=== PATIENT | male | born 1960 | race Caucasian/White ===

== ENCOUNTER 2020-04-18 09:15 | Emergency (ER) | payer OTHER, BC, SELFPAY ==
--- NOTE | ~2020-04-18 | XR_ITS ---
EXAMINATION: CR HIP, RIGHT CLINICAL INFORMATION: Right hip pain. Unable to bear weight. No fall. COMPARISON: Lumbar spine films dated 04/07/2014. TECHNIQUE: Frontal view of the pelvis and 2 views of the right hip. FINDINGS: No acute fracture or dislocation. Both femoral heads are normally located within the acetabula. Sacroiliac joints are intact bilaterally. There is slight widening of the pubic symphysis, measuring up to 0.6 cm. Some sclerotic density is seen on both sides of the pubic symphysis. Mild degenerative changes are seen in the lower lumbar spine. A clip is seen projected over the right upper scrotum. XR/XR hip RT w PEL1V IMPRESSION: 1. Slight widening of the pubic symphysis is seen, raising the suspicion of subtle diastases of the pubic symphysis. Close clinical correlation is requested. 2. No evidence of acute right hip fracture or acute pelvic bone fracture.
--- NOTE | ~2020-04-18 | CT_ITS ---
EXAMINATION: CT HIP WITHOUT CONTRAST, RIGHT CLINICAL INFORMATION: Unable to bear weight. COMPARISON: Right hip 04/18/2020 TECHNIQUE: Axial 2 mm thin and reformatted 1 mm thin sagittal and coronal images of right hip were obtained. This CT examination was performed using dose optimization techniques as appropriate, variously including the following: *Automated exposure control *Adjustment of mA and/or kV according to patient size (this includes techniques or standardized protocols for targeted exams where dose is matched to indication/reason for exam; i.e. extremities or head) *Use of iterative reconstruction technique DLP: 278 mGy-cm FINDINGS: There is a vertical fissure through the superior acetabulum simulating fracture. There is a subtle linear lucency along inferior acetabular suspicious for nondisplaced fracture. It is best visualized on axial image 84-89/6. There is no dislocation. The proximal femur appears unremarkable. The soft tissues are normal. CT/CT hip RT wo con IMPRESSION: Suspect nondisplaced subtle fracture inferior acetabulum. There is no dislocation.
[2020-04-18 09:34] VITALS: BP 136/95; BP 151/83; PULSE 80; PULSE 84; RESP 16; TEMP 36.9; O2SAT 96; O2SAT 97; BMI 31.1
--- NOTE | 2020-04-18 09:34 | ED.GENADULT ---
HPI - General Adult General Chief complaint: Extremity Injury, Lower Stated complaint: R HIP PAIN S/P FALL DURING NIGHT Time Seen by Provider: 04/18/20 09:22 Source: patient Mode of arrival: EMS Limitations: no limitations History of Present Illness HPI narrative: Patient comes to emergency room complaining of he has history of a labral tear. Patient has been doing well until yesterday he had sudden onset sharp pain on the right hip, no falls or other trauma. Patient states that this morning he was unable to get up and walk, called EMS, came to emergency room. Patient states that as long as he does move, he has no pain MD complaint: Right hip pain Related Data Previous Rx's Medication Instructions Recorded oxycodone 5 mg PO Q8H PRN #14 tab 04/18/20 Allergies Allergy/AdvReac Type Severity Reaction Status Date / Time No Known Allergies Allergy Verified 04/18/20 09:33 Review of Systems Review of Systems: Constitutional : No Weight loss, No Fever, No Chills, No Night Sweats, No Fatigue, No Malaise ENT/Mouth : No Hearing loss, No Ear Pain, No Nasal Congestion, No Sinus Pain, No Hoarseness, No sore throat, No Rhinorrhea, No Swallowing Difficulty Eyes: No Eye Pain, No Swelling, No Redness, No Foreign Body, No Discharge, No Vision Changes Cardiovascular : No Chest Pain, No SOB, No Dyspnea on Exertion, No Orthopnea, No Edema, No Palpitations Respiratory : No Cough, No Sputum, No Wheezing, No Smoke Exposure, No Dyspnea Gastrointestinal : No Nausea, No Vomiting, No Diarrhea, No Constipation, No abdominal Pain, No Hematochezia, No Melena Genitourinary : no irregular bleeding, No Dysuria, No Urinary Frequency, No Hematuria, No Urinary Incontinence, No Urgency, No Flank Pain, No Urinary Flow Changes, No Hesitancy Musculoskeletal : Complaining of right-sided hip pain with weight-bearing, No Myalgias, No Joint Swelling Skin : No Skin Lesions, No rash Neuro : No Weakness, No Numbness, No Paresthesias, No Loss of Consciousness, No Dizziness, No Headache Psych : No Anxiety/Panic, No Depression, No SI/HI/AH/VH, No Social Issues, Heme/Lymph: No Bruising, No Bleeding,No Lymphadenopathy Endocrine : No Polyuria, No Polydipsia, No Temperature Intolerance PMF Past Medical History Medical History High cholesterol Surgical History Previous back surgery Social History Social History Smoked in Last 30 Days: No Use of substances other than those prescribed or required for medical reasons: No Advance Directives: No Advance Directives Information Provided: No Physical Exam Vital Signs: Vital Signs: Last Vital Signs Temp 98.4 F 04/18/20 09:34 Pulse 84 04/18/20 09:34 Resp 16 04/18/20 09:34 BP 136/95 H 04/18/20 09:34 Pulse Ox 96 04/18/20 09:34 Body Mass Index 31.1 Appearance: Alert. Oriented X3. No acute distress. Eyes: Pupils equal, round and reactive to light. ENT: Pharynx normal. Neck: Normal inspection. Neck supple. No lymph nodes noted. No crepitus CVS: Normal heart rate and rhythm. Pulses normal. Normal S1 and S2 Respiratory: No respiratory distress. Breath sounds normal. No Wheezing. No rales Abdomen: Soft and nontender. No rigidity. No distention. good BS x4 Skin: Skin warm and dry. Normal skin color. Normal skin turgor. Extremities: No lower extremity edema. Right-sided hip pain worsened with hip flexion and extension, patient unable to bear weight due to pain Neuro: Oriented X 3. No motor deficit. No sensory deficit. Moving all extermities. No slurred speech. Course Course Course Narrative: I discussed the x-ray and the CT scan with the patient. Patient declined case management/PT evaluation. Patient will follow-up with his orthopedic surgeon. Patient will given crutches for walking assistance. I discussed with the patient that a fracture is suspected, an MRI would be more precise. Medical Decision Making Imaging Data Right hip CT: Radiologist's impression: INDINGS: There is a vertical fissure through the superior acetabulum simulating fracture. There is a subtle linear lucency along inferior acetabular suspicious for nondisplaced fracture. It is best visualized on axial image 84-89/6. There is no dislocation. The proximal femur appears unremarkable. The soft tissues are normal. CT/CT hip RT wo con IMPRESSION: Suspect nondisplaced subtle fracture inferior acetabulum. There is no dislocation. Hip x-ray: Radiologist's impression: No acute fracture or dislocation. Both femoral heads are normally located within the acetabula. Sacroiliac joints are intact bilaterally. There is slight widening of the pubic symphysis, measuring up to 0.6 cm. Some sclerotic density is seen on both sides of the pubic symphysis. Mild degenerative changes are seen in the lower lumbar spine. A clip is seen projected over the right upper scrotum. XR/XR hip RT w PEL1V IMPRESSION: 1. Slight widening of the pubic symphysis is seen, raising the suspicion of subtle diastases of the pubic symphysis. Close clinical correlation is requested. 2. No evidence of acute right hip fracture or acute pelvic bone fracture. Discharge Plan Discharge Clinical Impression: Closed right acetabular fracture Qualifiers: Encounter type: initial encounter Sublocation of acetabulum: unspecified portion of acetabulum Fracture alignment: nondisplaced Qualified Code(s): S32.401A - Unspecified fracture of right acetabulum, initial encounter for closed fracture Patient Disposition: Home, Self-Care Additional Instructions: Please follow-up with orthopedics, avoid weight-bearing until you are seen by orthopedics Please follow-up with your primary care physician tomorrow. If you have any worsening or new symptoms, please return to the emergency room or call 911 Prescriptions: New oxycodone 5 mg tablet 5 mg PO Q8H PRN (Reason: pain) Qty: 14 RF: 0 Referrals: Gerry Little MD [Physician] - 2 days
--- NOTE | 2020-04-18 09:57 | PC.NURSE ---
this rn requests pain med/muscle relaxer, awaiting orders
[2020-04-18] MEDS: Baclofen 10 MG TABLET PO (10:38)
[2020-04-18] MEDS: oxyCODONE HCl Immed Release 5 MG TABLET PO (11:40)
[2020-04-18] MEDS: Morphine Sulfate 4 MG/ML CARTRIDGE IVPUSH (13:06)
[2020-04-18 13:46] VITALS: BP 160/84; PULSE 82; RESP 16; TEMP 36.7; O2SAT 97
== END 2020-04-18 13:48 | disposition home or self-care (01) ==
PROVIDERS: Emergency Provider Emergency Medicine; PCP Internal Medicine
DX: S32.401A Unspecified fracture of right acetabulum, initial encounter for closed fracture (principal); W19.XXXA Unspecified fall, initial encounter; Y93.9 Activity, unspecified; Y92.9 Unspecified place or not applicable; Y99.9 Unspecified external cause status
CPT/HCPCS: 73502; 73700; 96374; 99284; J2270

== ENCOUNTER 2020-09-30 09:56 | Outpatient (REF) | payer BC, SELFPAY ==
[2020-09-30 10:43] LABS: MANUAL DIFF FLAG NO
[2020-09-30 10:58] LABS: Basophils Percent Auto 0.6 % (0-2); Eosinophils Absolute Auto 0.2 X10*3/uL (0.0-0.4); Eosinophils Percent Auto 3.6 % (0-4); Hematocrit 50.5 % (42-52); Hemoglobin 17.2 g/dl (14.0-18.0); Imm Gran Abs Auto 0.01 X10*3/uL (0.00-0.03); Imm Gran Pct Auto 0.2 % (0.0-0.4); Lymphocytes Absolute Auto 1.6 X10*3/uL (1.2-4.9); Lymphocytes Percent Auto 30.2 % (20-40); Mean Corpuscular HGB Conc 34.1 g/dl (31.0-36.0); Mean Corpuscular Hemoglobin 29.4 pg (27.0-33.0); Mean Corpuscular Volume 86.3 fL (80-98); Mean Platelet Volume 10.1 fL (9.4-12.4); Monocytes Absolute Auto 0.6 X10*3/uL (0.1-1.2); Neutrophils Absolute Auto 2.8 X10*3/uL (2.0-8.3); Neutrophils Percent Auto 53.4 % (45-73); Platelet Count 265 X10*3/uL (160-400); Red Blood Count 5.85 X10*6/uL (4.60-5.80); Red Cell Distribution Width 12.8 % (11.0-16.0); White Blood Count 5.2 X10*3/uL (4.8-10.8)
[2020-09-30 11:28] LABS: Alanine Aminotransferase 28 U/L (0-40); Albumin Level 4.4 g/dL (3.5-5.0); Alkaline Phosphatase 94 U/L (39-117); Anion Gap 10 (12-20); Aspartate Amino Transferase 22 U/L (5-37); Bilirubin Total 1.7 mg/dL (0.0-1.0); Blood Urea Nitrogen 16 mg/dL (9-16); Calcium 9.6 mg/dL (8.4-10.2); Carbon Dioxide 30 mmol/L (22-29); Chloride 106 mmol/L (96-108); Cholesterol 189 mg/dL; Estimated Glomerular Filt Rate > 60; Glucose Fasting 92 mg/dL (60-99); HDL Cholesterol 43 mg/dL; LDL Cholesterol Calculated 126 mg/dl; Potassium 4.8 mmol/L (3.3-5.1); Sodium 141 mmol/L (135-145); Total Protein 7.1 g/dL (6.5-8.0); Triglycerides 103 mg/dL
[2020-09-30 12:20] LABS: Prostate Specific Antigen 0.66 ng/mL (<0.05-4.0)
== END 2020-09-30 09:57 | disposition home or self-care (01) ==
LOC: HO.LAB 09:56
PROVIDERS: PCP Internal Medicine; Visit Provider Internal Medicine
DX: Z00.00 Encounter for general adult medical examination without abnormal findings (principal); Z12.5 Encounter for screening for malignant neoplasm of prostate
CPT/HCPCS: 36415; 80053; 80061; 84153; 85025

== ENCOUNTER 2021-01-25 10:10 | Outpatient (REF) | payer BC, SELFPAY ==
--- NOTE | ~2021-01-25 | XR_ITS ---
EXAMINATION: XR CHEST 2 VIEW CLINICAL INFORMATION: Cough, rule out pneumonia COMPARISON: 09/07/2018 TECHNIQUE: PA and lateral views of the chest obtained. FINDINGS: Retrocardiac opacity is evident in the left lower lobe, best visualized on the lateral radiograph. The right lung is clear. There are no pleural effusions. The cardiomediastinal silhouette is stable. XR/XR chest 2V IMPRESSION: Left lower lobe airspace opacities, for which follow-up is recommended to confirm clearing.
[2021-01-25 15:55] LABS: Influenza A PCR NEGATIVE (Negative); Influenza B PCR NEGATIVE (Negative); Resp Syncy Virus RNA Qual PCR NEGATIVE (Negative); SARS COV2 PCR INHOUSE NEGATIVE (Negative)
== END 2021-01-25 10:11 | disposition home or self-care (01) ==
LOC: HO.XRAY 10:10
PROVIDERS: PCP Internal Medicine; Visit Provider Internal Medicine
DX: R05.9 Cough, unspecified (principal); R50.9 Fever, unspecified; Z20.822 Contact with and (suspected) exposure to COVID-19
CPT/HCPCS: 0241U; 71046

== ENCOUNTER 2021-04-09 09:04 | Day surgery (SDC) | payer BC, SELFPAY ==
--- NOTE | 2021-04-09 09:35 | HO.ANESPROP2 ---
[facility] Past Medical History Medical History Enlarged prostate High cholesterol History of anxiety History of depression Neuropathy Functional capacity: independent ambulation Family History Family history of problems with anesthesia: No Surgical History Surgical History Previous back surgery History of Problems with Anesthesia: No Social History Social History Advance Directives: No Advance Directives Information Provided: Yes Meds Allergies Allergy/AdvReac Type Severity Reaction Status Date / Time No Known Allergies Allergy Verified 04/18/20 09:33 Active Medications: Current Medications Lactated Ringer's (Lr) 1,000 mls @ 100 mls/hr IVCONT .Q10H RAFAEL Home Medications Medication Instructions Recorded Confirmed Last Taken Type alfuzosin 10 mg tablet,extended 1 tab PO BEDTIME 04/08/21 04/08/21 Unknown History release 24 hr atorvastatin 40 mg tablet 1 tab PO DAILY 04/08/21 04/08/21 Unknown History cyclobenzaprine 10 mg tablet 1 tab PO TID 04/08/21 04/08/21 Unknown History gabapentin 800 mg tablet 1 tab PO TID 04/08/21 04/08/21 Unknown History Exam Exam Date and Time: April 09, 2021 0935 Airway Mallampati Class: II TM Dist: >3cm Neck ROM: Full Heart: RRR Lungs: CTA Assessment and Plan Final Anesthetic Review Family History of Problems with Anesthesia: No History of Problems with Anesthesia: No ASA Class: II Final Preanesthetic Review: No Changes in Pt Med Stat, Meds/Allgs Chart Reviewed, Consent Obtained/Reviewed and Anes Risks/Benef Reviewed Patient Risk: Low Procedure Risk: Low Anesthetic Plan Anesthetic Plan: MAC: Disposition: Standard PACU
[2021-04-09 09:42] VITALS: BP 144/101; PULSE 84; RESP 16; TEMP 36.7; O2SAT 96; BMI 32.1
[2021-04-09] MEDS: Lactated Ringers 1,000 ML 100 ML IVCONT (09:49)
--- NOTE | 2021-04-09 09:59 | HO.ANESPROP2 ---
[facility] Past Medical History Medical History Enlarged prostate High cholesterol History of anxiety History of depression Neuropathy Functional capacity: independent ambulation Family History Family history of problems with anesthesia: No Surgical History Surgical History Previous back surgery History of Problems with Anesthesia: No Social History Social History Patient Tobacco Use Status: Never used Tobacco Use of substances other than those prescribed or required for medical reasons: No Are you DNR?: No Advance Directives: No Advance Directives Information Provided: Yes Meds Allergies Allergy/AdvReac Type Severity Reaction Status Date / Time No Known Allergies Allergy Verified 04/18/20 09:33 Active Medications: Current Medications Lactated Ringer's (Lr) 1,000 mls @ 100 mls/hr IVCONT .Q10H RAFAEL Last Admin: 04/09/21 09:49 Dose: 100 mls/hr Documented by: Home Medications Medication Instructions Recorded Confirmed Last Taken Type alfuzosin 10 mg tablet,extended 1 tab PO BEDTIME 04/08/21 04/08/21 Unknown History release 24 hr atorvastatin 40 mg tablet 1 tab PO DAILY 04/08/21 04/08/21 Unknown History cyclobenzaprine 10 mg tablet 1 tab PO TID 04/08/21 04/08/21 Unknown History gabapentin 800 mg tablet 1 tab PO TID 04/08/21 04/08/21 Unknown History Exam Exam Date and Time: April 09, 2021 0959 Height,Weight and Vital Signs: Height 6 ft 2 in Weight 113.398 kg Last Vital Signs Temp 98.0 F 04/09/21 09:42 Pulse 84 04/09/21 09:42 Resp 16 04/09/21 09:42 BP 144/101 H 04/09/21 09:42 Pulse Ox 96 04/09/21 09:42 Airway Mallampati Class: II TM Dist: >3cm Neck ROM: Full Heart: RRR Lungs: CTA Assessment and Plan Final Anesthetic Review Family History of Problems with Anesthesia: No History of Problems with Anesthesia: No Final Preanesthetic Review: No Changes in Pt Med Stat, Meds/Allgs Chart Reviewed and Consent Obtained/Reviewed Patient Risk: Low Procedure Risk: Low Anesthetic Plan Anesthetic Plan: MAC: Disposition: Standard PACU
--- NOTE | 2021-04-09 10:25 | MHC.SHP ---
Pre-Procedural Eval Section A Date of Service: 04/09/21 The patient is an INPATIENT: No Changes since office visit: No Cold of Flu in the past 2 weeks, No New Medical Problems, No Changes in Medication and No Patient answered all questions The History & Physical has been completed within 30 days and I have reviewed it.: Yes Section B Chief Complaint: fhx of colon cancer, screening Allergies: Allergies Allergy/AdvReac Type Severity Reaction Status Date / Time No Known Allergies Allergy Verified 04/18/20 09:33 Plan I have reviewed the history and physical and performed a pertinent physical examination on my patient. No changes have occurred unless specified.
[2021-04-09 11:10] VITALS: BP 132/81; PULSE 94; RESP 16; TEMP 36.6; O2SAT 93
--- NOTE | 2021-04-09 11:10 | P.BOP_ITS ---
Brief Operative Note Date of Service: 04/09/21 Pre-op diagnosis: screening Post-op diagnosis: same (colon polyp) Surgeon: Donavon Payne Anesthesia: MAC Was an Box Printing Machine Operator used for this Procedure?: No Estimated blood loss (mL): 2 Pathology: other (polyp 55cm) Condition: stable Disposition: PACU
[2021-04-09 11:25] VITALS: BP 138/89; PULSE 96; RESP 16; TEMP 36.2; O2SAT 96
--- NOTE | 2021-04-09 12:02 | HO.POSTANES ---
Post Anesthesia Evaluation Post Anesthesia Evaluation Vital Signs: Vital Signs Temp Pulse Resp BP Pulse Ox 04/09/21 11:25 97.1 F 96 16 138/89 96 04/09/21 11:10 97.8 F 94 16 132/81 93 04/09/21 09:42 98.0 F 84 16 144/101 H 96 Anesthesia: Monitored Mental Status: Awake Pain Control: Satisfactory Nausea/Vomiting: None Hydration: Adequate Anesthesia-Related Issues: No Anes. Related Issues
--- NOTE | 2021-04-09 12:34 | OP_ITS ---
SURGEON: Donavon Payne MD INDICATIONS: Colon cancer screening and family history of colon cancer. PREOPERATIVE DIAGNOSIS: POSTOPERATIVE DIAGNOSIS: PROCEDURE PERFORMED: Colonoscopy to the terminal ileum with snare polypectomy and biopsy. ESTIMATED BLOOD LOSS: COMPLICATIONS: ANESTHESIA: ASSISTANTS: SPECIMENS: MEDICATIONS: Monitored anesthesia care. DESCRIPTION OF PROCEDURE: A history and physical were performed. The risks and benefits of the procedure were explained to the patient. An informed consent was obtained. The patient was placed in the left lateral decubitus position. A digital rectal exam was performed and was found to be normal. The Olympus pediatric video colonoscope was introduced into the rectum and advanced to the cecum without difficulty. The cecum was identified by transillumination, palpation, and identification of ileocecal valve. Examination was performed. The scope was removed. He tolerated the procedure well and was taken to recovery area in stable condition. FINDINGS: The terminal ileum was examined and appeared normal. The visualized colonic mucosa was within normal limits. The quality of the prep was good. At 55 cm from the anal verge, was a 6 mm polyp, which was removed with the snare and biopsy forceps. No other polyps were identified. Retroflexed examination was normal. There were small internal hemorrhoids. The quality of the prep was good. IMPRESSION: Colon polyp. RECOMMENDATION: 1. Follow up the biopsy results. 2. Repeat colonoscopy is recommended in 5 years due to family history. MD XAVIER Cotton/REJI / [id number] MTDD
== END 2021-04-09 11:53 | disposition home or self-care (01) ==
PROVIDERS: PCP Internal Medicine; Visit Provider Internal Medicine Gastroenterology
PROC: 0DJD8ZZ Inspection of Lower Intestinal Tract, Via Natural or Artificial Opening Endoscopic (ICD-10-PCS; CPT 45378; principal; 2021-04-09 10:30)
DX: Z12.11 Encounter for screening for malignant neoplasm of colon (principal); Z80.0 Family history of malignant neoplasm of digestive organs; Z86.010 Personal history of colon polyps; D12.5 Benign neoplasm of sigmoid colon; K64.8 Other hemorrhoids; K58.2 Mixed irritable bowel syndrome; N40.0 Benign prostatic hyperplasia without lower urinary tract symptoms; E78.00 Pure hypercholesterolemia, unspecified; G62.9 Polyneuropathy, unspecified; Z79.899 Other long term (current) drug therapy
CPT/HCPCS: 45385; 45380; 88305

== ENCOUNTER 2022-06-06 08:21 | Outpatient (REF) | payer BC, SELFPAY ==
[2022-06-06 08:58] LABS: MANUAL DIFF FLAG NO
[2022-06-06 09:21] LABS: Basophils Percent Auto 0.6 % (0-2); Eosinophils Absolute Auto 0.2 X10*3/uL (0.0-0.4); Eosinophils Percent Auto 3.3 % (0-4); Hematocrit 47.6 % (42.0-52.0); Hemoglobin 16.3 g/dl (14.0-18.0); Imm Gran Abs Auto 0.02 X10*3/uL (0.00-0.03); Imm Gran Pct Auto 0.4 % (0.0-0.4); Lymphocytes Absolute Auto 1.3 X10*3/uL (1.2-4.9); Lymphocytes Percent Auto 23.5 % (20-40); Mean Corpuscular HGB Conc 34.2 g/dl (31.0-36.0); Mean Corpuscular Hemoglobin 29.4 pg (27.0-33.0); Mean Corpuscular Volume 85.9 fL (80.0-98.0); Mean Platelet Volume 9.8 fL (9.4-12.4); Monocytes Absolute Auto 0.6 X10*3/uL (0.1-1.2); Monocytes Percent Auto 11.3 % (2-11); Neutrophils Absolute Auto 3.3 x10*3/uL (2.0-8.3); Neutrophils Percent Auto 60.9 % (45-73); Platelet Count 263 X10*3/uL (160-400); Red Blood Count 5.54 X10*6/uL (4.60-5.80); Red Cell Distribution Width 12.7 % (11.0-16.0); White Blood Count 5.4 X10*3/uL (4.8-10.8)
[2022-06-06 10:05] LABS: Prostate Specific Antigen 0.83 ng/mL (<0.05-4.0)
[2022-06-06 10:14] LABS: Alanine Aminotransferase 67 U/L (0-40); Albumin Level 4.1 g/dL (3.5-5.0); Alkaline Phosphatase 105 U/L (39-117); Anion Gap 11 (12-20); Aspartate Amino Transferase 37 U/L (5-37); Bilirubin Total 1.1 mg/dL (0.0-1.0); Blood Urea Nitrogen 21 mg/dL (9-16); Calcium 9.2 mg/dL (8.4-10.2); Carbon Dioxide 23 mmol/L (22-29); Chloride 111 mmol/L (96-108); Cholesterol 212 mg/dL; Estimated Glomerular Filt Rate > 60; HDL Cholesterol 47 mg/dL; LDL Cholesterol Calculated 149 mg/dl; Potassium 4.3 mmol/L (3.3-5.1); Sodium 141 mmol/L (135-145); Total Protein 6.5 g/dL (6.5-8.0); Triglycerides 82 mg/dL
[2022-06-06 11:55] LABS: Glucose Fasting 108 mg/dL (60-99)
== END 2022-06-06 08:22 | disposition home or self-care (01) ==
LOC: HO.LAB 08:21
PROVIDERS: PCP Internal Medicine; Visit Provider Internal Medicine
DX: Z00.00 Encounter for general adult medical examination without abnormal findings (principal); Z12.5 Encounter for screening for malignant neoplasm of prostate
CPT/HCPCS: 36415; 80053; 80061; 84153; 85025